=== PATIENT | female | born 1985 | race African-American/Black ===

== ENCOUNTER 2018-11-06 08:28 | Emergency (ER) | payer OTHER ==
[~2018-11-06] VITALS: Ht 165.1 cm; Wt 87.5 kg
[~2018-11-06 08:28] MED LIST: DOXYCYCLINE 10100 M1 PO; FLAGYL500 MG PO; MACROBID 100 M100 M1 PO; MICROGESTIN1 EAC1 PO; NAPROSYN500 MG PO; NOHOMEMEDICATIONS; PHENERGAN 25 MG25 M1 PO; ULTRAM 50MG TAB50 MG PO; ZOFRAN4 MG PO
[2018-11-06 09:09] LABS: HEMATOCRIT 32.4 % (37.0-47.0); HEMOGLOBIN 10.1 gm/dL (12.0-15.0); MCH 21.8 pg (26.0-34.0); MCHC 31.2 g/dL (28.0-37.0); MCV 69.9 fL (80.0-100.0); PLATELET COUNT 218 thou/uL (150-400); RBC 4.63 mil/uL (4.20-5.00); RDW 18.9 % (10.5-14.5); WBC 4.4 thou/uL (4.0-11.0)
[2018-11-06 09:15] LABS: URINE BILIRUBIN NEGATIVE (Negative); URINE BLOOD NEGATIVE (Negative); URINE CLARITY CLEAR; URINE COLOR YELLOW; URINE GLUCOSE-RANDOM* NEGATIVE (Negative); URINE KETONES NEGATIVE (Negative); URINE LEUKOCYTES-REFLEX NEGATIVE (Negative); URINE NITRITE-REFLEX NEGATIVE (Negative); URINE PROTEIN (DIPSTICK) NEGATIVE (Negative); URINE SPECIFIC GRAVITY >= 1.030 (1.005-1.035); URINE UROBILINOGEN 0.2 E.U./dl (0.2-1.0)
[2018-11-06 09:16] LABS: CALCIUM 8.7 mg/dL (8.5-10.1); POTASSIUM 3.9 mmol/L (3.5-5.1)
[2018-11-06 09:22] LABS: ALBUMIN 3.4 g/dL (3.4-5.0); TOTAL BILIRUBIN 0.3 mg/dL (<0.1-1.0)
[2018-11-06 10:14] LABS: ABSOLUTE NEUTROPHILS 2.8 thou/uL (1.4-8.2); ATYPICAL LYMPHS 3 %
[2018-11-06 10:15] LABS: ANISOCYTOSIS 1+; MICROCYTES 1+; OVALOCYTES OCCASIONAL; POIKILOCYTOSIS SLIGHT
[2018-11-06] MEDS ORDERED: TRAMADOL 50 MG50 MG PO (10:24)
[2018-11-06] MEDS ORDERED: NAPROSYN500 MG PO (10:24)
[2018-11-06] MEDS ORDERED: DOXYCYCLINE 10100 MG PO (10:24)
[2018-11-06] MEDS ORDERED: ONDANSETRON ODT8 MG PO (10:32)
[2018-11-06 10:57] VITALS: BP 112/72
== END 2018-11-06 10:58 | disposition home or self-care (01) ==
LOC: ER 08:28
PROVIDERS: Emergency Medicine
DX: N73.0 Acute parametritis and pelvic cellulitis (principal); D64.9 Anemia, unspecified; G44.209 Tension-type headache, unspecified, not intractable; R11.2 Nausea with vomiting, unspecified; N94.6 Dysmenorrhea, unspecified; E66.9 Obesity, unspecified; G43.909 Migraine, unspecified, not intractable, without status migrainosus; Z68.32 Body mass index [BMI] 32.0-32.9, adult; Z98.890 Other specified postprocedural states

== ENCOUNTER 2019-03-01 20:59 | Emergency (ER) | payer OTHER ==
[~2019-03-01] VITALS: Ht 165.1 cm; Wt 87.5 kg
[~2019-03-01 20:59] MED LIST changes: +DOXYCYCLINE 10100 MG PO; +ONDANSETRON ODT8 MG PO; +TRAMADOL 50 MG50 MG PO
[2019-03-01] MEDS ORDERED: PRENATAL (21:17)
[2019-03-01 23:47] LABS: ABSOLUTE NEUTROPHILS 7.3 thou/uL (1.4-8.2); BASOPHILS 0.4 % (0.0-2.0); EOSINOPHILS 0.8 % (0.0-3.0); HEMATOCRIT 30.4 % (37.0-47.0); HEMOGLOBIN 9.7 gm/dL (12.0-15.0); LYMPHOCYTES 18.6 % (24.0-44.0); MCH 22.8 pg (26.0-34.0); MCV 71.1 fL (80.0-100.0); MONOCYTES 9.2 % (1.0-8.0); PLATELET COUNT 223 thou/uL (150-400); RBC 4.27 mil/uL (4.20-5.00); WBC 10.3 thou/uL (4.0-11.0)
[2019-03-01 23:52] LABS: CREATININE 0.7 mg/dL (0.6-1.0)
[2019-03-01 23:58] LABS: ALBUMIN 3.3 g/dL (3.4-5.0); TOTAL BILIRUBIN 0.1 mg/dL (<0.1-1.0); TOTAL PROTEIN 6.6 g/dL (6.4-8.2)
[2019-03-02 00:45] VITALS: BP 117/69
[2019-03-02 18:56] LABS: URINE BILIRUBIN NEGATIVE (Negative); URINE BLOOD NEGATIVE (Negative); URINE CLARITY CLEAR; URINE COLOR YELLOW; URINE GLUCOSE-RANDOM* NEGATIVE (Negative); URINE KETONES NEGATIVE (Negative); URINE LEUKOCYTES-REFLEX NEGATIVE (Negative); URINE NITRITE-REFLEX NEGATIVE (Negative); URINE PROTEIN (DIPSTICK) TRACE (Negative); URINE SPECIFIC GRAVITY 1.025 (1.005-1.035); URINE UROBILINOGEN 0.2 E.U./dl (0.2-1.0)
== END 2019-03-02 01:07 | disposition home or self-care (01) ==
LOC: ER 20:59
PROVIDERS: Emergency Medicine
DX: O20.8 Other hemorrhage in early pregnancy (principal); O26.891 Other specified pregnancy related conditions, first trimester; N83.292 Other ovarian cyst, left side; G43.909 Migraine, unspecified, not intractable, without status migrainosus; Z98.890 Other specified postprocedural states; Z3A.09 9 weeks gestation of pregnancy